=== PATIENT | female | born 1955 | race Caucasian/White ===

== ENCOUNTER 2018-01-26 14:14 | Inpatient (IN) ==
[2018-01-26] MEDS ORDERED: Acetaminophen 325 MG Tablet PO PRN (20:59)
[2018-01-26] MEDS ORDERED: Aluminum/Magnesium/Simethacone Susp 30 ML UDC PO PRN (20:59)
[2018-01-26] MEDS: Ibuprofen 600 MG Tablet PO PRN (21:45)
[2018-01-27 09:48] LABS: Anion Gap 9 meq/L (5-15); Blood Urea Nitrogen 7 mg/dL (7-18); Calcium 8.1 mg/dL (8.5-10.1); Carbon Dioxide 25.2 meq/L (21.0-32.0); Chloride 110 meq/L (98-107); Glomerular Filtration Rate Greater Than 89 mL/min (>89); Glucose,Random 110 mg/dL (74-106); Potassium 4.3 meq/L (3.5-5.1); Sodium 144 meq/L (136-145)
[2018-01-27 09:49] LABS: Cholesterol 175 mg/dL (120-200)
[2018-01-27 09:51] LABS: Chol/HDL Ratio 3.82 Ratio; HDL Cholesterol 45.7 mg/dL (40.0-60.0); LDL Cholesterol,Calculated 100 mg/dL (0-99); Triglycerides 147 mg/dL (42-150)
[2018-01-27] MEDS ORDERED: Aluminum/Magnesium/Simethacone Susp 30 ML UDC PO PRN (11:11)
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
[2018-01-27 13:38] LABS: Hemoglobin A1c 5.4 % (4.3-6.0)
--- NOTE | 2018-01-27 14:41 | P.CON ---
History of Present Illness Service: [facility] Consult date: 01/27/18 Requesting Physician: Dawson Alcantar Reason for Consult: HTN Primary Care Provider: UNKNOWN Chief Complaint: HTN History of Present Illness: Patient is a 62-year-old female with past medical history of HTN, DVT of the right lower extremity who initially came to [facility] for dehydration, acute renal failure and altered mental status. She was medically treated and medically cleared for psychiatric evaluation. Patient is now admitted to inpatient psychiatry unit for further evaluation. Consulted for assistance with medical management, hypertension. Patient seen and examined today. Flat affect, appears depressed. States that she has hypertension as part of her history and takes lisinopril and hydrochlorothiazide but forgot her dosage. States she does not really remember how she got the [facility]. She felt a lot better now. Denies any suicidal ideation. Denies pain and discomfort. Denies SOB/ dyspnea. Denies chest pain, palpitations, headaches, dizziness. Denies fevers, chills, n/v/d. Denies hematuria, dysuria. Review of Systems All other systems reviewed negative except as stated in HPI [facility] - History History Provided By: Patient - Medical History Medical History: Medical History (Last Updated 01/27/18 @ 15:38 by GEORGES Scanlon) Blood clot in vein HTN (hypertension) - Surgical History Surgical History: Surgical History (Last Updated 01/27/18 @ 15:39 by GEORGES Scanlon) H/O right knee surgery History of cholecystectomy - Family History Family History: Family History (Last Updated 01/27/18 @ 15:39 by GEORGES Scanlon) Mother Congestive heart disease Other Parents - Tobacco History Second Hand Smoke Exposure: No Smoking Status: Former smoker Tobacco Type: Cigarettes - Alcohol History How Often Do You Have a Drink Containing Alcohol: Never - Substance Use History Substance History: No History of Abuse Medications and Allergies Active Medications: Active Medications Al Hydrox/Mg Hydrox/Simethicone (Mag-Al Plus Susp Liq) 30 ml PO Q6H PRN PRN Reason: DYSPEPSIA Al Hydroxide/Mg Hydroxide (Milk Of Magnesia Liq) 30 ml PO Q12H PRN PRN Reason: Mild Constipation Diphenhydramine HCl (Benadryl) 50 mg PO HS PRN PRN Reason: INSOMNIA Enoxaparin Sodium (Lovenox Inj) 30 mg SQ HS SARAH Hydroxyzine HCl (Atarax) 50 mg PO Q6H PRN PRN Reason: ANXIETY Ibuprofen (Motrin) 600 mg PO Q6H PRN PRN Reason: PAIN SCALE 1 TO 10 Last Admin: 01/26/18 21:45 Dose: 600 mg Nicotine (Habitrol 14 Mg Patch.24 Hr) 1 patch T-DERMAL DAILY [facility] Patch Removal (Remove Old Patch) 1 each T-DERMAL HS [facility] Last Admin: 01/27/18 00:08 Dose: Not Given Quetiapine Fumarate (Seroquel) 25 mg PO HS SARAH Sertraline HCl (Zoloft) 25 mg PO DAILY SARAH Allergies Allergy/AdvReac Type Severity Reaction Status Date / Time pregabalin Allergy Edema, Verified 01/26/18 20:26 Localized propoxyphene AdvReac Nausea/Vomi Verified 01/26/18 20:27 ting Physical Exam Vital signs: Vital Signs 01/26/18 20:05 01/27/18 05:54 Temperature 98.3 F 97.6 F Pulse Rate 105 H 76 Respiratory Rate 16 16 Blood Pressure 152/78 H 134/70 Pulse Oximetry 99 100 Intake & Output 01/26/18 01/27/18 01/27/18 18:59 06:59 18:59 Weight 71.8 kg Other: Weight On Admission 71.8 kg Narrative: GENERAL: This is a well-nourished, well-developed patient, in no apparent distress. SKIN: Warm and dry. HEENT: Normocephalic. Pupils equal round and reactive. Nose without bleeding. Airway patent. NECK: Trachea midline. CARDIOVASCULAR: Regular rate and rhythm without murmurs, gallops, or rubs. RESPIRATORY: Clear to auscultation. Breath sounds equal bilaterally. No wheezes , rales, or rhonchi. GASTROINTESTINAL: Abdomen soft, non-tender, nondistended. Bowel Sounds normoactive x4. MUSCULOSKELETAL: Extremities without clubbing, cyanosis, or edema. NEUROLOGICAL: Awake and alert. Oriented to place, person. Moves all extremities. Normal speech. Assessment and Plan - Plan Patient is a 62-year-old female with past medical history of HTN, DVT of the right lower extremity who initially came to [facility] for dehydration, acute renal failure and altered mental status. She was medically treated and medically cleared for psychiatric evaluation. Patient is now admitted to inpatient psychiatry unit for further evaluation. Consulted for assistance with medical management, hypertension. Depressive disorder -Managed by psychiatry team Hypertension -Per review of records home medication includes on lisinopril 20 mg daily, hydrochlorothiazide 25 mg daily -Patient's blood pressure is in the 130s today, will start off with lisinopril 10 mg daily. Adjust as needed -Monitor BP trend History of acute kidney injury -Current creatinine 0.58 Elevated LDL -ASCVD risk 5.5% -Recommended to start statin. Will check LFTs. DVT prop early ambulation. Patient is ambulatory Code Status: Full code Discussed Condition With: Patient, nursing Discharge Planning: DC disposition by primary team
[2018-01-27] MEDS ORDERED: Acetaminophen 325 MG Tablet PO PRN (14:43)
[2018-01-27] MEDS: Sertraline 50 MG Tablet PO SCH (16:04)
[2018-01-27 16:24] LABS: Alanine Aminotransferase 41 U/L (10-53); Albumin 2.6 g/dL (3.4-5.0); Aspartate Aminotransferase 27 U/L (15-37)
[2018-01-27 16:25] LABS: Alkaline Phosphatase 92 U/L (45-117); Total Protein 5.8 g/dL (6.4-8.2)
[2018-01-27] MEDS: Ibuprofen 600 MG Tablet PO PRN (17:33)
[2018-01-27] MEDS: Enoxaparin Inj 30 MG/0.3 ML Syringe SQ SCH (20:51)
[2018-01-27] MEDS ORDERED: QUEtiapine 25 MG Tablet PO SCH ×3 (21:00)
[2018-01-27] MEDS ORDERED: Enoxaparin Inj 30 MG/0.3 ML Syringe SQ SCH (21:00)
[2018-01-28] MEDS: Sertraline 50 MG Tablet PO SCH (09:26)
[2018-01-28] MEDS: Lisinopril 10 MG Tablet PO SCH (09:27)
--- NOTE | 2018-01-28 13:58 | P.PNPSY ---
Subjective Remarks: Patient was seen and case discussed with nursing. Patient appears to have had a panic attack in the shower. During my interview in her room if she has mild tremors of both hands that at times does go away. She says she has not had any other episodes like that. Vital signs are conducted in heart rate is elevated and blood pressure is low. Case was discussed with nursing and we will encourage fluids and get an EKG and repeat the blood pressure an hour. We will also take vital signs every 6 hours. We will hold Seroquel for the day given it can lower blood pressure Mental Status Examination Appearance: Appropriate, Disheveled (Slightly) Consciousness: Alert Orientation: x4 Motor Activity: Normal gait Speech: Unremarkable Language: Adequate Fund of Knowledge: Adequate Attention and Concentration: Adequate Memory: Unremarkable Mood: Sad Affect: Other (Slight increased intensity decreased range) Thought Process & Associations: Intact Thought Content: Appropriate Hallucination Type: None Delusion Type: Other (Somewhat vigilant) Suicidal Ideation: No Suicidal Plan: No Suicidal Intention: No Homicidal Ideation: No Homicidal Plan: No Homicidal Intention: No Insight: Adequate Judgment: Adequate Assessment and Plan - Assessment (1) Major depressive disorder, single episode, severe with mixed features Code(s): F32.2 - Major depressive disorder, single episode, severe without psychotic features Status: Acute (2) Delirium Code(s): R41.0 - Disorientation, unspecified Status: Acute - Plan Plan: See HPI Justification for Continued Inpatient Stay: Patient would decompensate in a less restrictive setting Request Healthcare Surrogate/Guardian Advocate?: No
--- NOTE | 2018-01-28 14:01 | P.PN ---
Subjective Interval history: Follow-up visit HTN, HLD. Patient seen and examined today. Reports she was in the bathroom taking a shower. She was drying up and got nervous start shaking. As per nursing, BP was checked earlier and the patient has a drop in blood pressure was low, about 89 systolic. Patient states she is better now sitting in bed. Reports claustrophobia. Denies pain and discomfort. Denies SOB/ dyspnea. Denies chest pain, palpitations, headaches, dizziness. Denies fevers, chills, n/v/d. Denies hematuria, dysuria. Physical Exam Vital signs: Vital Signs 01/27/18 16:44 01/28/18 05:56 Temperature 98.3 F 98.1 F Pulse Rate 89 77 Respiratory Rate 18 18 Blood Pressure 120/80 140/84 Pulse Oximetry 99 97 Narrative: GENERAL: This is a well-nourished, well-developed patient, in no apparent distress. SKIN: Warm and dry. HEENT: Normocephalic. Pupils equal round and reactive. Nose without bleeding. Airway patent. NECK: Trachea midline. CARDIOVASCULAR: Regular rate and rhythm without murmurs, gallops, or rubs. RESPIRATORY: Clear to auscultation. Breath sounds equal bilaterally. No wheezes , rales, or rhonchi. GASTROINTESTINAL: Abdomen soft, non-tender, nondistended. Bowel Sounds normoactive x4. MUSCULOSKELETAL: Extremities without clubbing, cyanosis, or edema. NEUROLOGICAL: Awake and alert. Oriented to place, person. Moves all extremities. Normal speech. Results - Labs CBC & Chem 7: 01/27/18 08:44 Laboratory Results - last 24 hr 01/27/18 01/27/18 01/27/18 08:44 08:44 08:44 Sodium 144 Potassium 4.3 Chloride 110 H Carbon Dioxide 25.2 Anion Gap 9 BUN 7 Creatinine 0.58 Estimated GFR Greater than 89 Random Glucose 110 H Hemoglobin A1c 5.4 Calcium 8.1 L Total Bilirubin 0.3 Cancelled Direct Bilirubin 0.1 Cancelled Indirect Bilirubin 0.2 Cancelled AST 27 Cancelled ALT 41 Cancelled Alkaline Phosphatase 92 Cancelled Total Protein 5.8 L Cancelled Albumin 2.6 L Cancelled Triglycerides 147 Cholesterol 175 LDL Cholesterol, Calc 100 H HDL Cholesterol 45.7 Cholesterol/HDL Ratio 3.82 Assessment and Plan - Plan Patient is a 62-year-old female with past medical history of HTN, DVT of the right lower extremity who initially came to [facility] for dehydration, acute renal failure and altered mental status. She was medically treated and medically cleared for psychiatric evaluation. Patient is now admitted to inpatient psychiatry unit for further evaluation. Consulted for assistance with medical management, hypertension. Depressive disorder -Managed by psychiatry team Hypertension -Per review of records home medication includes on lisinopril 20 mg daily, hydrochlorothiazide 25 mg daily -Continue lisinopril 10 mg daily. Adjust as needed -Monitor BP trend History of acute kidney injury -Current creatinine 0.58 Elevated LDL -ASCVD risk 5.5% -Recommended to start statin. Atorvastatin 20mg daily -Discussed lifestyle modification with patient, verbalized understanding DVT prop early ambulation. Patient is ambulatory Code Status: Full Code Discussed Condition With: Patient, nurse Discharge Planning: DC disposition by primary team
[2018-01-28 19:37] LABS: Bacteria,Urine Moderate /hpf; Bilirubin,Urine Negative (Negative); Clarity,Urine Hazy (Clear); Color,Urine Yellow (Yellw/Straw); Glucose,Urine (UA) Negative (Negative); Leukocyte Esterase,Urine Large (Negative); Mucus,Urine Few /lpf (Occasional); Nitrite,Urine Negative (Negative); Specific Gravity,Urine 1.004 (1.002-1.035); Squamous Epithelial Cell,Urine 3 /hpf (0-5)
[2018-01-28] MEDS: Enoxaparin Inj 30 MG/0.3 ML Syringe SQ SCH (21:29)
[2018-01-29] MEDS: Sertraline 50 MG Tablet PO SCH (09:03)
[2018-01-29] MEDS: Lisinopril 10 MG Tablet PO SCH (09:05)
[2018-01-29 09:59] LABS: Calcium 8.9 mg/dL (8.5-10.1); Potassium 4.2 meq/L (3.5-5.1)
--- NOTE | 2018-01-29 13:13 | ECG ---
Date Performed: 01/28/2018 Time Performed: 14:43:13 PTAGE: 62 years EKG: Sinus rhythm WITH SHORT WY INTERVAL POSSIBLE RIGHT VENTRICULAR CONDUCTION DELAY BORDERLINE ECG NO PREVIOUS TRACING DOCTOR: Steve Null Interpretating Date/Time 01/29/2018 13:10:15
--- NOTE | 2018-01-29 14:29 | P.PN ---
Subjective Interval history: Follow-up visit HTN, HLD. Patient seen and examined today. Patient reports she is a lot better now. Denies pain and discomfort. Denies SOB/ dyspnea. Denies chest pain, palpitations, headaches, dizziness. Denies fevers, chills, n/ v/d. Denies hematuria, dysuria. Physical Exam Vital signs: Vital Signs 01/28/18 17:31 01/28/18 21:05 01/29/18 05:38 Temperature 97.9 F 98.0 F Pulse Rate 103 H 84 71 Respiratory Rate 20 16 Blood Pressure 131/82 134/87 117/60 Pulse Oximetry 97 96 Narrative: GENERAL: This is a well-nourished, well-developed patient, in no apparent distress. SKIN: Warm and dry. HEENT: Normocephalic. Pupils equal round and reactive. Nose without bleeding. Airway patent. NECK: Trachea midline. CARDIOVASCULAR: Regular rate and rhythm without murmurs, gallops, or rubs. RESPIRATORY: Clear to auscultation. Breath sounds equal bilaterally. No wheezes , rales, or rhonchi. GASTROINTESTINAL: Abdomen soft, non-tender, nondistended. Bowel Sounds normoactive x4. MUSCULOSKELETAL: Extremities without clubbing, cyanosis, or edema. NEUROLOGICAL: Awake and alert. Oriented to place, person. Moves all extremities. Normal speech. Results - Labs CBC & Chem 7: 01/29/18 08:39 Laboratory Results - last 24 hr 01/28/18 01/29/18 17:17 08:39 Sodium 142 Potassium 4.2 Chloride 107 Carbon Dioxide 28.0 Anion Gap 7 BUN 10 Creatinine 0.75 Estimated GFR 79 L Random Glucose 91 Calcium 8.9 D Urine Color Yellow Urine Clarity Hazy H Urine pH 7.0 Ur Specific [place] 1.004 Urine Protein Negative Urine Glucose (UA) Negative Urine Ketones Negative Urine Occult Blood Small H Urine Nitrate Negative Urine Bilirubin Negative Urine Urobilinogen Less than 2 Ur Leukocyte Esterase Large H Urine RBC 1 Urine WBC 18 H Ur Squamous Epith Cells 3 Urine Bacteria Moderate H Urine Mucus Few H Micro UA Comment Culture indicated Ur Microscopic Review Not Reportable Urine Culture Comments Culture indicated Microbiology 01/28/18 17:17 Clean Catch Urine Urine Culture - Preliminary No growth in 24 hours Assessment and Plan - Plan Patient is a 62-year-old female with past medical history of HTN, DVT of the right lower extremity who initially came to [facility] for dehydration, acute renal failure and altered mental status. She was medically treated and medically cleared for psychiatric evaluation. Patient is now admitted to inpatient psychiatry unit for further evaluation. Consulted for assistance with medical management, hypertension. Depressive disorder -Managed by psychiatry team Hypertension -Per review of records home medication includes on lisinopril 20 mg daily, hydrochlorothiazide 25 mg daily -Continue lisinopril 10 mg daily. -Monitor BP trend -BP within normal. Discussed with patient to just start off with lisinopril 10 mg daily when she goes home. Hold off on taking hydrochlorothiazide until seen by PCP. History of acute kidney injury -Current creatinine 0.58 Elevated LDL -ASCVD risk 5.5% -Recommended to start statin. Atorvastatin 20mg daily -Discussed lifestyle modification with patient, verbalized understanding DVT prop early ambulation. Patient is ambulatory Stable from Hospitalist standpoint. We will sign off. Reconsult as needed. Code Status: Full code Discussed Condition With: Patient, nurse Discharge Planning: DC disposition by primary team
--- NOTE | 2018-01-29 14:47 | P.PNPSY ---
Subjective Remarks: Patient was seen and case discussed with nursing. Patient's vital signs have been stable. She has not had any more panic attacks. Per nursing, she was tearful earlier this morning when discussing her mother who has . She denies suicidal or homicidal ideation intent or plan. Affect remains blunted Mental Status Examination Appearance: Appropriate, Disheveled (Slightly) Consciousness: Alert Orientation: x4 Motor Activity: Normal gait Speech: Unremarkable Language: Adequate Fund of Knowledge: Adequate Attention and Concentration: Adequate Memory: Unremarkable Mood: Sad Affect: Other (Slight increased intensity decreased range) Thought Process & Associations: Intact Thought Content: Appropriate Hallucination Type: None Delusion Type: Other (Somewhat vigilant) Suicidal Ideation: No Suicidal Plan: No Suicidal Intention: No Homicidal Ideation: No Homicidal Plan: No Homicidal Intention: No Insight: Adequate Judgment: Adequate Assessment and Plan - Assessment (1) Major depressive disorder, single episode, severe with mixed features Code(s): F32.2 - Major depressive disorder, single episode, severe without psychotic features Status: Acute (2) Delirium Code(s): R41.0 - Disorientation, unspecified Status: Acute - Plan Plan: See HPI Justification for Continued Inpatient Stay: Patient would decompensate in a less restrictive setting Request Healthcare Surrogate/Guardian Advocate?: No
[2018-01-29] MEDS: Enoxaparin Inj 30 MG/0.3 ML Syringe SQ SCH (20:32)
[2018-01-30] MEDS: Sertraline 50 MG Tablet PO SCH (08:59)
--- NOTE | 2018-01-30 15:28 | P.PNPSY ---
Subjective Remarks: Patient seen and examined with nurse. Chart reviewed. Case discussed with nursing staff. Per nursing, patient increasingly paranoid over weekend. Floor staff indicates that patient believed that someone was going to kill her. On my exam, patient presents as irritable. She denies AVH but appears internally preoccupied. Denies SI or HI. When asked about reported paranoid ideation, patient makes veiled reference to "stuff going on" but refuses to be more concrete. She does seem fairly paranoid. Denies side effects from meds. No physical complaints. Discharged focused, and when I encourage her to wait for Dr. Alcantar to assess for fitness for discharge, she calls this provider an "asshole." I have instructed the nurse to provide the patient with a right of release should she desire to fill one out as she is presently voluntary. Vital Signs Temp Pulse Resp BP Pulse Ox 01/30/18 06:20 97.3 F L 83 16 109/50 L 99 01/30/18 01:58 98 H 16 102/64 01/30/18 01:57 98 H 16 102/64 01/29/18 18:41 98.4 F 83 17 124/81 97 Laboratory Results - last 24 hr 01/30/18 06:10 POC Glucose 101 Labs reviewed. Review of Systems All other systems reviewed negative except as stated in HPI Mental Status Examination Appearance: Other (Fair grooming) Consciousness: Alert Orientation: x4 Motor Activity: Other (No motor abnormalities noted. No signs of withdrawal noted.) Speech: Unremarkable Language: Adequate Fund of Knowledge: Adequate Attention and Concentration: Adequate Memory: Unremarkable Mood: Other (Somewhat dysphoric) Affect: Irritable Thought Process & Associations: Intact Thought Content: Delusional Hallucination Type: None (Denies AVH but does appear a little internally preoccupied) Delusion Type: Paranoid Suicidal Ideation: No Suicidal Plan: No Suicidal Intention: No Homicidal Ideation: No Homicidal Plan: No Homicidal Intention: No Insight: Fair Judgment: Impulsive Assessment and Plan - Assessment (1) Major depressive disorder, single episode, severe with mixed features Code(s): F32.2 - Major depressive disorder, single episode, severe without psychotic features Status: Acute (2) Delirium Code(s): R41.0 - Disorientation, unspecified Status: Acute - Plan Plan: Titrate Seroquel to 75mg qHS to target paranoia. Continue other psychotropics as ordered. Continue to monitor on the inpatient unit. Counselor to call for collateral information. Continue other medications and care as ordered. Justification for Continued Inpatient Stay: Medication changes. Impairment in reality construction. High risk for decompensation in less restrictive environment. Discharge Planning: Pending psychiatric stabilization. Per Dr. Alcantar. Request Healthcare Surrogate/Guardian Advocate?: No
[2018-01-30] MEDS: Lisinopril 10 MG Tablet PO SCH (16:22)
[2018-01-30] MEDS ORDERED: QUEtiapine 25 MG Tablet PO SCH (21:00)
[2018-01-30] MEDS: Enoxaparin Inj 30 MG/0.3 ML Syringe SQ SCH (21:21)
[2018-01-31] MEDS: Lisinopril 10 MG Tablet PO SCH (09:07)
[2018-01-31] MEDS: Sertraline 50 MG Tablet PO SCH (09:08)
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
--- NOTE | 2018-01-31 12:21 | P.PN ---
Subjective Interval history: Reconsult in regards to clarification of Lovenox dose. Patient has a history of DVT 5 years ago. Lovenox dosing patient has been given here in the hospital has been for DVT prophylaxis, not therapeutic. No indication to continue Lovenox injections as an outpatient. Discussed with nursing staff. Physical Exam Vital signs: Vital Signs 01/30/18 17:09 01/31/18 05:51 Temperature 98.0 F 97.6 F Pulse Rate 87 80 Respiratory Rate 16 18 Blood Pressure 143/71 H 163/77 H Pulse Oximetry 97 99 Intake & Output 01/30/18 01/31/18 01/31/18 18:59 06:59 18:59 Intake Total 360 / 360 Balance 360 / 360 Intake: Oral 360 / 360 Narrative: GENERAL: This is a well-nourished, well-developed patient, in no apparent distress. Awake and alert. SKIN: Warm and dry. HEENT: Normocephalic. Pupils equal round and reactive. Nose without bleeding. Airway patent. NECK: Trachea midline. CARDIOVASCULAR: Regular rate and rhythm without murmurs, gallops, or rubs. RESPIRATORY: Clear to auscultation. Breath sounds equal bilaterally. No wheezes , rales, or rhonchi. GASTROINTESTINAL: Abdomen soft, non-tender, nondistended. Bowel Sounds normoactive x4. MUSCULOSKELETAL: Extremities without clubbing, cyanosis, or edema. NEUROLOGICAL: Awake and alert. Oriented to place, person. Moves all extremities. Normal speech. Results - Labs CBC & Chem 7: 01/29/18 08:39 Microbiology 01/28/18 17:17 Clean Catch Urine Urine Culture - Final 50-100,000 cfu/mL mixed gram positive samy (probable contaminants) Assessment and Plan - Plan 62-year-old female with past medical history of HTN, DVT of the right lower extremity who initially came to [facility] for dehydration, acute renal failure and altered mental status. She was medically treated and medically cleared for psychiatric evaluation. Patient is now admitted to inpatient psychiatry unit for further evaluation. Consulted for assistance with medical management, hypertension. Depressive disorder -Managed by psychiatry team Hypertension, now hypotensive -Per review of records home medication includes on lisinopril 20 mg daily, hydrochlorothiazide 25 mg daily -Continue lisinopril 10 mg daily. -Monitor BP trend -BP within normal. Discussed with patient to starting off with lisinopril 10 mg daily when she goes home. Hold off on taking hydrochlorothiazide until seen by PCP. History of acute kidney injury -Current creatinine 0.58 Hx of DVT 5 yrs ago -stable Elevated LDL -ASCVD risk 5.5% -Recommended to start statin. Atorvastatin 20mg daily -Discussed lifestyle modification with patient, verbalized understanding DVT prop -Patient is ambulatory. Discontinue Lovenox injections. Patient is stable from hospital standpoint. Cleared for discharge. [facility] will sign off. Please reconsult if needed. Code Status: FULL
== END 2018-01-31 15:40 | disposition home or self-care (01) ==
LOC: H260 20:05
PROVIDERS: ADMIT Psychiatry & Neurology Psychiatry; ATTEND Psychiatry & Neurology Psychiatry